=== PATIENT | female | born 1960 ===

== ENCOUNTER 2020-02-24 04:20 | Day surgery (SDC) | payer OTHER ==
[2020-02-23 18:41] VITALS: BMI 30.7
[2020-02-24] MEDS ORDERED: PROPOFOL 20 ML ONE (07:52)
[2020-02-24] MEDS ORDERED: MIDAZOLAM HCL 2 MG/2 ML SINGLE DOSE VIAL ONE (08:56)
[2020-02-24] MEDS ORDERED: KETOROLAC TROMETHAMINE 30 MG/1 ML VIAL ONE (09:23)
[2020-02-24 11:59] VITALS: BP 100/54; PULSE 62; TEMP 97
== END 2020-02-24 12:05 | disposition home or self-care (01) ==
LOC: JASU-SURG 04:20
PROVIDERS: ATTEND Urology
PROC: 0TF4XZZ Fragmentation in Left Kidney Pelvis, External Approach (ICD-10-PCS; principal; 2020-02-24 09:15)
DX: N20.0 Calculus of kidney (principal)
CPT/HCPCS: 82962